=== PATIENT | female | born 2000 | race African-American/Black ===

== ENCOUNTER 2024-02-21 09:51 | Emergency (ER) | payer OTHER ==
[2024-02-21 10:28] LABS: BASOPHILS % (AUTO) 0.5 %; EOSINOPHILS # (AUTO) 0.1 10^3/uL (0.0-0.7); EOSINOPHILS % (AUTO) 0.6 %; HCT - HEMATOCRIT 39.6 % (37.0-47.0); HGB - HEMOGLOBIN 12.4 g/dL (12.0-16.0); LYMPHOCYTES # (AUTO) 2.3 10^3/uL (1.5-3.5); LYMPHOCYTES % (AUTO) 29.2 %; MEAN CORPUSCULAR HEMOGLOBIN 25.6 pg (27.0-31.0); MEAN CORPUSCULAR HGB CONC 31.3 g/dL (32.0-36.0); MEAN CORPUSCULAR VOLUME 81.6 fL (81.0-99.0); MEAN PLATELET VOLUME 10.7 fL (7.9-10.8); MONOCYTES # (AUTO) 0.4 10^3/uL (0.0-1.0); MONOCYTES % (AUTO) 5.7 %; NEUTROPHILS # (AUTO) 4.9 10^3/uL (1.5-6.6); NEUTROPHILS % (AUTO) 63.7 %; PLT - PLATELET COUNT 277 10^3/uL (130-450); RED BLOOD COUNT 4.85 10^6/uL (4.20-5.40); RED CELL DISTRIBUTION WIDTH 13.7 % (12.0-15.0); WHITE BLOOD COUNT 7.8 x10^3/uL (4.8-10.8)
[2024-02-21 10:42] LABS: BILIRUBIN,URINE NEGATIVE (NEGATIVE); GLUCOSE, URINE (UA) NEGATIVE (NEGATIVE); KETONES,URINE (UA) TRACE mg/dL (NEGATIVE); LEUKOCYTE ESTERASE, URINE SMALL (NEGATIVE); NITRITE,URINE NEGATIVE (NEGATIVE); OCCULT BLOOD,URINE LARGE (NEGATIVE); PROTEIN,URINE NEGATIVE (NEGATIVE); UROBILINOGEN,URINE 0.2 (NORMAL) E.U./dL (NORMAL)
[2024-02-21 10:45] LABS: CLARITY,URINE HAZY (CLEAR); HCG UR QUAL NEGATIVE
[2024-02-21 10:49] LABS: BACTERIA,URINE Few /HPF (None Seen); SQUAMOUS EPITHELIAL CELL,UR MOD Squamous (<= Few)
[2024-02-21 10:55] LABS: ALBUMIN 4.4 g/dL (3.2-5.5); ALBUMIN/GLOBULIN RATIO 1.3 (1.0-2.2); BILIRUBIN,TOTAL 0.6 mg/dL (0.2-1.0); CALCIUM 9.8 mg/dL (8.5-10.3); CREATININE 0.9 mg/dL (0.6-1.3); POTASSIUM 3.8 mmol/L (3.5-4.5); TOTAL PROTEIN 7.8 g/dL (6.4-8.9)
[2024-02-21] MEDS: KETOROLAC 30 MG/ML VIAL IVP STA (10:59)
[2024-02-21] MEDS: SODIUM CHLORIDE 0.9% 1,000 ML IV STA (11:50)
--- NOTE | 2024-02-21 12:13 | ED Physician Documentation ---
PD HPI FEMALE - Stated complaint Stated Complaint: - Chief complaint Chief Complaint: Abd Pain - History obtained from History obtained from: Patient - Additional information Additional information: Patient is a 23-year-old female presenting for evaluation of heavy vaginal bleeding for the past 2 days. Patient states she was 25 days late for her period which started yesterday. She does have a history of having cramps associated with her periods and has been taking aspirin. She went to the walk-in clinic and they directed her to the emergency department as she reported she was feeling lightheaded.She did take a home test which was negative.Denies dysuria. Does report some vaginal discharge and denies concerns for STIs. Review of Systems Constitutional: denies: Fever Cardiac: denies: Chest pain / pressure Respiratory: denies: Dyspnea : reports: Vaginal bleeding PD PAST MEDICAL HISTORY - Past Medical History Past Medical History: No - Past Surgical History Past Surgical History: Yes - Present Medications Home Medications: Ambulatory Orders Medication Instructions Recorded Confirmed metroNIDAZOLE [Flagyl] 500 mg PO BID 7 Days #14 tablet 02/21/24 - Allergies Allergies/Adverse Reactions: Allergies Allergy/AdvReac Type Severity Reaction Status Date / Time No Known Drug Allergies Allergy Verified 02/21/24 09:58 - Social History Does the pt smoke?: No Smoking Status: Never smoker Does the pt drink ETOH?: No Does the pt have substance abuse?: No - Immunizations Immunizations are current?: Yes PD ED PE NORMAL - General General: Alert and oriented X 3, No acute distress, Well developed/nourished - HEENT HEENT: Atraumatic - Neck Neck: Supple, no meningeal sign - Cardiac Cardiac: RRR - Respiratory Respiratory: No respiratory distress, Clear bilaterally - Abdomen Abdomen: Normal bowel sounds, Soft, Non tender, Non distended - Female Female : 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), Other (Normal external exam, moderate amount of vaginal bleeding with no clots, no CMT or adnexal tenderness) - Derm Derm: Warm and dry - Neuro Neuro: Normal speech Results - Vitals Vitals: Vital Signs - 24 hr 02/21/24 02/21/24 09:54 12:31 Temperature 36.6 C Heart Rate 53 L 60 Respiratory 16 16 Rate Blood Pressure 109/68 110/70 O2 Saturation 100 99 - Labs Labs: Laboratory Tests 02/21/24 02/21/24 02/21/24 10:21 10:21 10:34 WBC 7.8 RBC 4.85 Hgb 12.4 Hct 39.6 MCV 81.6 MCH 25.6 L MCHC 31.3 L RDW 13.7 Plt Count 277 MPV 10.7 Neut # (Auto) 4.9 Lymph # (Auto) 2.3 [place] # (Auto) 0.4 Eos # (Auto) 0.1 Baso # (Auto) 0.0 Absolute Nucleated RBC 0.00 Nucleated RBC % 0.0 Sodium 137 Potassium 3.8 Chloride 105 Carbon Dioxide 25 Anion Gap 7.0 BUN 11 Creatinine 0.9 Estimated GFR (MDRD) 95 Glucose 78 Calcium 9.8 Total Bilirubin 0.6 AST 20 ALT 14 Alkaline Phosphatase 49 Total Protein 7.8 Albumin 4.4 Globulin 3.4 Albumin/Globulin Ratio 1.3 Lipase 18 Urine Color YELLOW Urine Clarity HAZY Urine pH 6.0 Ur Specific [place] 1.015 Urine Protein NEGATIVE Urine Glucose (UA) NEGATIVE Urine Ketones TRACE Urine Occult Blood LARGE H Urine Nitrite NEGATIVE Urine Bilirubin NEGATIVE Urine Urobilinogen 0.2 (NORMAL) Ur Leukocyte Esterase SMALL H Urine RBC 11-25 H Urine WBC 6-10 H Ur Squamous Epith Cells MOD Squamous H Urine Bacteria Few Ur Microscopic Review INDICATED Urine Culture Comments NOT INDICATED Urine HCG, Qual NEGATIVE C. glabrata (PCR) C. krusei (PCR) Rosangela species DNA T. vaginalis (PCR) Bact Vaginosis (PCR) 02/21/24 11:36 WBC RBC Hgb Hct MCV MCH MCHC RDW Plt Count MPV Neut # (Auto) Lymph # (Auto) [place] # (Auto) Eos # (Auto) Baso # (Auto) Absolute Nucleated RBC Nucleated RBC % Sodium Potassium Chloride Carbon Dioxide Anion Gap BUN Creatinine Estimated GFR (MDRD) Glucose Calcium Total Bilirubin AST ALT Alkaline Phosphatase Total Protein Albumin Globulin Albumin/Globulin Ratio Lipase Urine Color Urine Clarity Urine pH Ur Specific [place] Urine Protein Urine Glucose (UA) Urine Ketones Urine Occult Blood Urine Nitrite Urine Bilirubin Urine Urobilinogen Ur Leukocyte Esterase Urine RBC Urine WBC Ur Squamous Epith Cells Urine Bacteria Ur Microscopic Review Urine Culture Comments Urine HCG, Qual C. glabrata (PCR) NEGATIVE C. krusei (PCR) NEGATIVE Rosangela species DNA NEGATIVE T. vaginalis (PCR) NEGATIVE Bact Vaginosis (PCR) POSITIVE A PD Medical Decision Making - ED course Complexity details: reviewed results, re-evaluated patient, d/w patient ED course: Patient is a 23-year-old female presenting for evaluation of heavy vaginal bleeding for the past 2 days in the setting of being late on her period. hCG is negative. Vital signs are stable and abdominal exam is benign. Pelvic exam was also performed without significant abnormal findings other than presence of blood and some discharge. But no CMT or adnexal tenderness to suggest PID or ovarian torsion or abscess.CBC, chemistries were reviewed. No signs of significant blood loss. She is ambulating here without difficulty and feels better after Toradol. Again abdominal and pelvic exams are benign. Vaginosis swab is positive for BV and prescription for Flagyl was sent. Gonorrhea chlamydia testing is pending. Patient counseled on need for close follow-up as well as advised on concerning symptoms to return for. 1513 - Called patient to review lab results which shows bacterial vaginosis. 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 I did call her significant other who is also listed and he passed off the phone to the patient. I confirmed her identity with her date of and reviewed her results. Prescription for Flagyl sent to [facility]. Departure - Departure Disposition: 01 Home, Self Care Clinical Impression: Menometrorrhagia, Bacterial vaginosis Condition: Stable Instructions: ED Bleed Irregular Vaginal Follow-Up: [facility] [Provider Group] Comments: Your testing today is negative for . Your hemoglobin is also stable. You also do not have much tenderness on exam so I do not think an emergent ultrasound is indicated. However you do need close follow-up with your primary care provider. You would benefit from a referral to a supervisor carding given your history of irregular menstrual cycles. You may need an outpatient ultrasound. Return to the ER with any worsening symptoms such as increased pain, heavy bleeding where you are saturating a pad an hour for several hours or any other concerns. I would recommend using an anti-inflammatory such as ibuprofen during the first few days of your menses. You can take 600 mg every 6 hours. Forms: PCP List, Activity restrictions Discharge Date/Time: 02/21/24 12:32
[2024-02-21 12:33] VITALS: BP 110/70; O2SAT 99
[2024-02-21 14:22] LABS: BACTERIAL VAGINOSIS DNA POSITIVE (NEGATIVE); CANDIDA GLABRATA DNA NEGATIVE (NEGATIVE); CANDIDA GROUP DNA NEGATIVE (NEGATIVE); CANDIDA KRUSEI DNA NEGATIVE (NEGATIVE); TRICHOMONAS VAGINALIS DNA NEGATIVE (NEGATIVE)
[2024-02-21 16:32] LABS: CHLAMYDIA TRACHOMATIS DNA INDETERMINATE (NEGATIVE)
[2024-02-21 16:33] LABS: NEISSERIA GONORRHOEAE DNA INDETERMINATE (NEGATIVE)
== END 2024-02-21 12:32 | disposition home or self-care (01) ==
LOC: ED 09:51
DX: N92.1 Excessive and frequent menstruation with irregular cycle (principal); N76.0 Acute vaginitis
CPT/HCPCS: 36415; 80053; 81001; 81003; 81025; 81514; 83690; 85025; 87086; 87491; 87591; 87661; 96374; 99283